=== PATIENT | male | born 1995 | race Caucasian/White ===

== ENCOUNTER 2023-10-10 18:23 | Emergency (ER) | payer OTHER ==
[~2023-10-10] VITALS: Ht 185.4 cm; Wt 98.9 kg
[2023-10-10 18:45] VITALS: BP 143/94; PULSE 82; RESP 18; TEMP 98.2; O2SAT 94
[2023-10-10 19:45] VITALS: O2SAT 94
== END 2023-10-10 20:12 | disposition home or self-care (01) ==
LOC: MED 18:23
DX: R45.851 Suicidal ideations (principal); Z79.899 Other long term (current) drug therapy
CPT/HCPCS: 99283